=== PATIENT | female | born 1945 | race Two or more races ===

== ENCOUNTER → 2018-12-24 16:03 | Outpatient (CLI) | payer MEDICARE, SELFPAY ==
--- NOTE | 2018-12-24 | LES_PTH ---
PATIENT: DEVAN KOROMA LOC: [facility] U#:[id number] AGE/SX: 80/F ROOM: RE12/24/[address]: Dr. Sergio Sams MD : 1945 BED: DIS: SPEC #: [id number] RECD: 12/24/18 15:18 STATUS: ODETTE GUERREROChintan #: [id number] MICHAEL: 12/24/18 00:[address]: Sergio Sams DEPT: SURGICAL PATHOLOGY RECD BY: Shalom Patel Tissues: Skin of eyelid, NOS Procedures: Surgery Specimen Level IV HEADER OPERATION: RLL lesion excision PRE-OP DIAGNOSIS: Increased size of lesion RLL TISSUE SUBMITTED: RLL lesion MICROSCOPIC DIAGNOSIS Right lower lid lesion, biopsy: Epidermal inclusion cyst. AM:leanna 12/26/18 MICROSCOPIC DESCRIPTION Slides are reviewed. GROSS DESCRIPTION Received in fixative is one container labeled with the patient's name and designated right lower lid lesion. The specimen consists of one irregular fragment of light nguyen soft tissue that measures 0.1 x <0.1 x <0.1 cm. The specimen is totally submitted in one cassette. / AM:leanna 12/25/18 TC:5 [facility]: [id number]
== END ==
PROVIDERS: Referring Provider Ophthalmology; Visit Provider Ophthalmology
DX: L72.0 Epidermal cyst (principal)
CPT/HCPCS: 88305